=== PATIENT | male | born 1940 | race Caucasian/White ===

== ENCOUNTER 2017-03-07 11:25 | Day surgery (SDC) | payer MEDICARE, OTHER ==
[~2017-03-07] VITALS: Ht 185.4 cm; Wt 86.4 kg
[~2017-03-07 11:25] MED LIST: 00186-0370-20 IH; ANTIVERT 25MG25 MG PO; ASPIRIN 32325 MG/TAB PO; ASPIRIN 81M81 MG/TA2 PO; B-12 100 MCG PO; CIALIS10 MG PO; CLARITIN 1010 MG/TAB PO; DEBROX OP; FLOMAX 0.40.4 MG/CAP PO; FLUARIX IM; FORADIL AERO0.012 MG IH; HYTRIN 5MG C5 MG/CAP PO; LIPITOR 80MG80 MG PO; LOPRESSOR 550 MG/TAB PO; LORTAB 5/500 501 TAB PO; NEXIUM 40MG40 MG PO; NITROSTAT0.4 MG/TAB SL; OMEGA 31000 MG PO; OS-CAL 500 + D1 TAB PO; PLAVIX 75MG TAB75 MG PO; PROAIR HFA0.09 MG/AC IH; PROVENTIL0.09 MG/A1 IH; RT ADVAIR 228 DISKUS IH; RT SPIRIVA18 MCG IH; SINGULAIR 110 MG/TAB PO; THEO-24 30300 MG/CAP PO; VIAGRA100 M1 PO; VITAMIN B-12100 MCG PO; VITAMIN C500 MG PO; WELLBUTRIN XL150 MG PO; ZESTRIL2.5 MG PO; ZOCOR 40MG40 MG PO; ZOLOFT 25MG25 MG PO; [UNRECOGNIZED DRUG - REMARK]
[2017-03-07] MEDS ORDERED: ASPIRIN E.C. 8181 MG PO (12:10)
[2017-03-07] MEDS ORDERED: EPA FISH OIL1 SGL PO (12:12)
[2017-03-07] MEDS ORDERED: DESYREL 50MG50 MG PO (12:13)
[2017-03-07] MEDS ORDERED: RT ADVAIR 228 DISKUS IH (12:14)
[2017-03-07 13:25] VITALS: BP 99/71; PULSE 74; TEMP 97.8
[2017-03-07 13:40] VITALS: BP 96/63; PULSE 72
[2017-03-07 13:55] VITALS: BP 108/73; PULSE 77; TEMP 97.8
== END 2017-03-07 14:34 | disposition home or self-care (01) ==
LOC: SDCO 11:25
DX: Z12.11 Encounter for screening for malignant neoplasm of colon (principal); K57.30 Diverticulosis of large intestine without perforation or abscess without bleeding; K64.0 First degree hemorrhoids; I71.4 Abdominal aortic aneurysm, without rupture; I10 Essential (primary) hypertension; Z95.5 Presence of coronary angioplasty implant and graft; J44.9 Chronic obstructive pulmonary disease, unspecified; I25.119 Atherosclerotic heart disease of native coronary artery with unspecified angina pectoris; G47.33 Obstructive sleep apnea (adult) (pediatric); I08.1 Rheumatic disorders of both mitral and tricuspid valves; I25.2 Old myocardial infarction; F17.210 Nicotine dependence, cigarettes, uncomplicated; M17.12 Unilateral primary osteoarthritis, left knee; Z85.118 Personal history of other malignant neoplasm of bronchus and lung; Z79.01 Long term (current) use of anticoagulants
CPT/HCPCS: OP; J2704; J7030

== ENCOUNTER → 2017-10-19 | Outpatient (CLI) | payer MEDICARE, OTHER ==
[~2017-10-19] MED LIST changes: +ASPIRIN E.C. 8181 MG PO; +DESYREL 50MG50 MG PO; +EPA FISH OIL1 SGL PO
[2017-10-19 12:49] LABS: HEMATOCRIT 40.6 % (42.0-52.0); HEMOGLOBIN 13.6 g/dl (13.5-18.0); MEAN CELL VOLUME 104 fl (80.0-100.0); MEAN CORPUSCULAR HEMOGLOBIN 35 pg (27.0-31.0); MEAN CORPUSCULAR HGB CONC 34 g/dl (33.0-37.0); MEAN PLATELET VOLUME 9.5 fl (7.4-10.4); PLATELET COUNT 244 K/mm3 (130-400); RED BLOOD COUNT 3.92 M/mm3 (4.20-5.60); REDCELL DISTRIBUTION WIDTH-CV 14.6 % (11.5-14.5)
[2017-10-19 13:02] LABS: ALBUMIN 3.3 gm/dL (3.5-5.0); BILIRUBIN,TOTAL 0.7 mg/dL (0.0-1.0); CALCIUM 9.4 mg/dL (8.4-10.2); CREATININE, serum 0.79 mg/dL (0.66-1.25); MAGNESIUM 1.6 mg/dL (1.6-2.3); PHOSPHOROUS 3.2 mg/dL (2.5-4.5); POTASSIUM 4.2 mmol/L (3.4-5.0); TOTAL PROTEIN 6.8 gm/dL (6.4-8.2)
[2017-10-19 13:12] LABS: TROPONIN-I 0.031 ng/mL (0.000-0.034)
[2017-10-19 13:22] LABS: BILIRUBIN UNCONJUGATED 0.4 mg/dL (0.0-1.1); BILIRUBIN,DIRECT 0.3 mg/dL (0.0-0.4)
== END ==
LOC: COL.LAB 12:32
PROVIDERS: Internal Medicine Interventional Cardiology
DX: I50.20 Unspecified systolic (congestive) heart failure (principal); R60.0 Localized edema

== ENCOUNTER → 2017-10-19 | Outpatient (CLI) | payer MEDICARE, OTHER | LOC: COL.RAD 14:09 | DX: I26.99 Other pulmonary embolism without acute cor pulmonale (principal); R59.0 Localized enlarged lymph nodes; J98.4 Other disorders of lung; I50.20 Unspecified systolic (congestive) heart failure | CPT/HCPCS: J7050; Q9967 ==

== ENCOUNTER → 2017-11-14 | Outpatient (CLI) | payer MEDICARE, OTHER | LOC: COL.RAD 08:50 | DX: R93.7 Abnormal findings on diagnostic imaging of other parts of musculoskeletal system (principal) | CPT/HCPCS: A9503 ==

== ENCOUNTER → 2017-11-27 | Outpatient (CLI) | payer MEDICARE, OTHER | LOC: COL.RAD 11-21 09:45 | DX: C34.11 Malignant neoplasm of upper lobe, right bronchus or lung (principal); I67.82 Cerebral ischemia; G31.9 Degenerative disease of nervous system, unspecified | CPT/HCPCS: A9585 ==